=== PATIENT | male | born 1955 | race Caucasian/White ===

== ENCOUNTER 2024-05-27 10:44 | Inpatient (IN) | payer MEDICARE, OTHER ==
[~2024-05-27] VITALS: Ht 157.5 cm; Wt 50.8 kg
[2024-05-27] MEDS: VANCOMYCIN 1G PREMIX 200 ML IV ONE (12:15)
[2024-05-27 12:51] LABS: HEMOGLOBIN. 7.5 g/dL (14.0-18.0); MEAN CORPUSCULAR HEMOGLOBIN 27.6 pg (28.0-32.0); MEAN CORPUSCULAR HGB CONC 31.4 g/dL (31.0-37.0); MEAN PLATELET VOLUME 5.6 fl (7.4-10.4); PLATELET 835 x1000/uL (130-400); RED BLOOD CELL COUNT 2.73 mill/uL (4.7-6.1); RED CELL DISTRIBUTION WIDTH 15.9 % (11.6-14.6); WHITE BLOOD COUNT 10.1 x1000/uL (4.5-11.0)
[2024-05-27 12:55] LABS: DIFFERENTIAL COMMENT 1
[2024-05-27 13:01] LABS: CHLORIDE 100 mEq/L (98-107); POTASSIUM 4.9 mEq/L (3.5-5.1); SODIUM 130 mEq/L (136-145)
[2024-05-27 13:02] LABS: CALCIUM 9.3 mg/dL (8.7-10.4); CARBON DIOXIDE 26 mEq/L (21-32)
[2024-05-27 13:03] LABS: PROTHROMBIN TIME 10.7 sec (9.6-11.0)
[2024-05-27 13:07] LABS: CREATININE 0.7 mg/dL (0.6-1.3); GLUCOSE 127 mg/dL (70-105)
[2024-05-27 13:08] LABS: TROPONIN I HIGH SENSITIVITY 4 ng/L (3.0-53); UREA NITROGEN BLOOD 10 mg/dL (9-23)
[2024-05-27 13:09] LABS: ALANINE AMINOTRANSFERASE < 7 IU/L (10-49); ALBUMIN 4.3 g/dL (3.2-4.8); ASPARTATE AMINOTRANSFERASE 11 IU/L (<34); CREATINE KINASE 60 IU/L (46-171); LACTATE DEHYDROGENASE 163 IU/L (120-246)
[2024-05-27 13:10] LABS: BILIRUBIN TOTAL 0.2 mg/dL (0.1-1.0); PROTEIN TOTAL 7.1 g/dL (6.0-8.3)
[2024-05-27 13:22] LABS: BILIRUBIN DIRECT < 0.1 mg/dL (<=3.0)
[2024-05-27] MEDS: SODIUM CHLORIDE 0.9% 1,000 ML IV ONE (14:31)
[2024-05-27] MEDS: PIPERACILLIN/TAZO 3.375G/50ML 50 ML IV ONE (14:31)
[2024-05-27 15:35] LABS: ANISOCYTOSIS 1+; PLATELET ESTIMATE MARKEDLY INCREASED
[2024-05-27 16:44] LABS: CLARITY URINE CLEAR (CLEAR); COLOR URINE YELLOW (YELLOW); GLUCOSE URINE NEGATIVE (NEGATIVE); KETONES URINE NEGATIVE (NEGATIVE); LEUKOCYTE ESTERASE URINE NEGATIVE (NEGATIVE); NITRITE URINE NEGATIVE (NEGATIVE); OCCULT BLOOD URINE NEGATIVE (NEGATIVE); PH URINE 7.5 (4.5-8.0); PROTEIN URINE NEGATIVE (NEGATIVE); SPECIFIC GRAVITY URINE 1.007 (1.005-1.030); UROBILINOGEN URINE 0.2 E.U./dL (0.2-1.0)
[2024-05-27] MEDS ORDERED: ONDANSETRON HCL 4MG/2ML INJ IV PRN (18:00)
[2024-05-27] MEDS ORDERED: IPRATROPIUM/ALBUTEROL 0.5-3(2.5)MG/3ML NEB HHN PRN (18:00)
[2024-05-27] MEDS ORDERED: LORAZEPAM 0.5MG TABLET PO PRN (18:00)
[2024-05-27] MEDS ORDERED: MAGNESIUM/ALUMINUM HYDROXIDE/SIMETHICONE 30ML UDC PO PRN (18:00)
[2024-05-27] MEDS ORDERED: ACETAMINOPHEN 325MG TABLET PO PRN (18:00)
[2024-05-27] MEDS ORDERED: NALOXONE HCL 0.4MG/ML VIAL IV PRN (19:00)
[2024-05-27 19:50] LABS: CHLORIDE 102 mEq/L (98-107); POTASSIUM 4.1 mEq/L (3.5-5.1)
[2024-05-27 19:51] LABS: CARBON DIOXIDE 23 mEq/L (21-32); SODIUM 133 mEq/L (136-145)
[2024-05-27 19:52] LABS: CALCIUM 8.8 mg/dL (8.7-10.4)
[2024-05-27 19:56] LABS: CREATININE 0.7 mg/dL (0.6-1.3); GLUCOSE 112 mg/dL (70-105); IRON 24 ug/dL (65-175)
[2024-05-27 19:57] LABS: UREA NITROGEN BLOOD 9 mg/dL (9-23)
[2024-05-27 19:59] LABS: TOTAL IRON BINDING CAPACITY 450 ug/dl (250-425)
[2024-05-27] MEDS: FAMOTIDINE 20MG/2ML VIAL IV SCH (22:41)
[2024-05-27] MEDS: SODIUM CHLORIDE 0.9% 1,000 ML IV SCH (22:41)
[2024-05-28] MEDS: IOHEXOL-300 100 ML BOTTLE ONE (00:09)
[2024-05-28 08:46] LABS: HEMATOCRIT. 22.6 % (42.0-52.0); HEMOGLOBIN. 7.2 g/dL (14.0-18.0); MEAN CORPUSCULAR HEMOGLOBIN 27.9 pg (28.0-32.0); MEAN CORPUSCULAR HGB CONC 31.7 g/dL (31.0-37.0); MEAN PLATELET VOLUME 5.6 fl (7.4-10.4); PLATELET 820 x1000/uL (130-400); RED BLOOD CELL COUNT 2.57 mill/uL (4.7-6.1); RED CELL DISTRIBUTION WIDTH 15.6 % (11.6-14.6); WHITE BLOOD COUNT 8.6 x1000/uL (4.5-11.0)
[2024-05-28 08:51] LABS: CARBON DIOXIDE 24 mEq/L (21-32); CHLORIDE 104 mEq/L (98-107); POTASSIUM 4.1 mEq/L (3.5-5.1); SODIUM 133 mEq/L (136-145)
[2024-05-28 08:52] LABS: DIFFERENTIAL COMMENT 1
[2024-05-28 08:56] LABS: CREATININE 0.6 mg/dL (0.6-1.3); GLUCOSE 114 mg/dL (70-105)
[2024-05-28 08:57] LABS: TRIGLYCERIDE 73 mg/dL (0-150); UREA NITROGEN BLOOD 7 mg/dL (9-23)
[2024-05-28 08:58] LABS: LDL CHOLESTEROL 53 mg/dL (5-100)
[2024-05-28 08:59] LABS: CHOLESTEROL 84 mg/dL (<200); HDL CHOLESTEROL 26 mg/dL (>55); PHOSPHORUS 3.7 mg/dL (2.5-4.9)
[2024-05-28 09:01] LABS: T4 FREE 0.88 ng/dL (0.89-1.76); THYROID STIMULATING HORMONE 1.75 uIU/mL (0.55-4.78)
[2024-05-28 13:00] VITALS: BP 151/69; PULSE 93; RESP 16; TEMP 37.00296; O2SAT 98
[2024-05-28 15:14] LABS: ALANINE AMINOTRANSFERASE < 7 IU/L (10-49); ALBUMIN 3.9 g/dL (3.2-4.8); ASPARTATE AMINOTRANSFERASE 12 IU/L (<34); BILIRUBIN TOTAL 0.3 mg/dL (0.1-1.0); PROTEIN TOTAL 6.5 g/dL (6.0-8.3)
[2024-05-28 15:30] LABS: BILIRUBIN DIRECT < 0.1 mg/dL (<=3.0)
[2024-05-28 15:52] LABS: GIANT PLATELETS FEW; PLATELET ESTIMATE MARKEDLY INCREASED
[2024-05-28 17:00] VITALS: BP 151/69; PULSE 93; RESP 16; TEMP 37.0296
[2024-05-28] MEDS ORDERED: FERROUS SULFATE 325MG TABLET PO SCH (17:40)
[2024-05-28] MEDS ORDERED: HYDRALAZINE 20MG/ML VIAL IV PRN (18:00)
[2024-05-28 20:00] VITALS: BP 118/64; PULSE 92; RESP 20; TEMP 37.89192; O2SAT 98
[2024-05-28] MEDS ORDERED: FURO-152 MT (20:50)
[2024-05-28] MEDS ORDERED: METO-396 MT (20:50)
[2024-05-28] MEDS: FERROUS SULFATE 325MG TABLET PO SCH (21:51)
[2024-05-28] MEDS: GUAIFENESIN 200MG/10ML SUGAR FREE UDC PO PRN (21:51)
[2024-05-28] MEDS: ACETAMINOPHEN 325MG TABLET PO PRN (21:52)
[2024-05-29] VITALS: BP 105/51; PULSE 53; RESP 18; TEMP 37.28076; O2SAT 98
[2024-05-29 04:00] VITALS: BP 132/56; PULSE 57; RESP 19; TEMP 36.61404; O2SAT 97
[2024-05-29 06:30] LABS: CHLORIDE 98 mEq/L (98-107); POTASSIUM 3.7 mEq/L (3.5-5.1); SODIUM 130 mEq/L (136-145)
[2024-05-29 06:31] LABS: CALCIUM 9.1 mg/dL (8.7-10.4); CARBON DIOXIDE 24 mEq/L (21-32)
[2024-05-29 06:36] LABS: CREATININE 0.6 mg/dL (0.6-1.3); GLUCOSE 108 mg/dL (70-105); UREA NITROGEN BLOOD 8 mg/dL (9-23)
[2024-05-29 06:37] LABS: LACTATE DEHYDROGENASE 154 IU/L (120-246)
[2024-05-29 06:49] LABS: HEMATOCRIT. 22.8 % (42.0-52.0); HEMOGLOBIN. 7.4 g/dL (14.0-18.0); MEAN CORPUSCULAR HEMOGLOBIN 28.3 pg (28.0-32.0); MEAN CORPUSCULAR HGB CONC 32.6 g/dL (31.0-37.0); MEAN CORPUSCULAR VOLUME 86.6 fL (80.0-94.0); MEAN PLATELET VOLUME 5.7 fl (7.4-10.4); PLATELET 733 x1000/uL (130-400); RED BLOOD CELL COUNT 2.64 mill/uL (4.7-6.1); RED CELL DISTRIBUTION WIDTH 15.7 % (11.6-14.6); WHITE BLOOD COUNT 7.1 x1000/uL (4.5-11.0)
[2024-05-29 07:23] LABS: DIFFERENTIAL COMMENT 1
[2024-05-29 08:00] VITALS: BP 143/66; PULSE 103; RESP 18; TEMP 37.11408; O2SAT 18
[2024-05-29] MEDS ORDERED: METOPROLOL SUCCINATE 25MG ER TABLET PO SCH (09:00)
[2024-05-29] MEDS: FUROSEMIDE 20MG TABLET PO SCH (09:50)
[2024-05-29] MEDS: DOCUSATE SODIUM 100MG CAPSULE PO PRN (09:50)
[2024-05-29 12:00] VITALS: BP 146/57; PULSE 97; RESP 18; TEMP 36.33624; O2SAT 98
[2024-05-29 16:00] VITALS: BP 121/63; PULSE 108; RESP 18; TEMP 36.50292; O2SAT 98
[2024-05-29 16:23] LABS: ANISOCYTOSIS 1+; PLATELET ESTIMATE INCREASED
[2024-05-29 20:00] VITALS: BP 139/55; PULSE 91; RESP 20; TEMP 37.89192; O2SAT 96
[2024-05-30] VITALS: BP 127/63; PULSE 92; RESP 18; TEMP 36.61404; O2SAT 100
[2024-05-30 04:00] VITALS: BP 126/51; PULSE 104; RESP 21; TEMP 37.72524; O2SAT 98
[2024-05-30 06:13] LABS: CARCINOEMBRYONIC AG - SEND OUT 7.9 ng/mL (0.0-4.7); PROSTATE SPECIFIC AG TOTAL 0.6 ng/mL (0.0-4.0)
[2024-05-30 06:52] LABS: HEMATOCRIT. 21.7 % (42.0-52.0); HEMOGLOBIN. 7.1 g/dL (14.0-18.0); MEAN CORPUSCULAR HEMOGLOBIN 28.3 pg (28.0-32.0); MEAN CORPUSCULAR HGB CONC 32.8 g/dL (31.0-37.0); MEAN CORPUSCULAR VOLUME 86.4 fL (80.0-94.0); MEAN PLATELET VOLUME 5.8 fl (7.4-10.4); PLATELET 671 x1000/uL (130-400); RED BLOOD CELL COUNT 2.52 mill/uL (4.7-6.1); RED CELL DISTRIBUTION WIDTH 15.8 % (11.6-14.6); WHITE BLOOD COUNT 9.7 x1000/uL (4.5-11.0)
[2024-05-30 06:54] LABS: DIFFERENTIAL COMMENT 1
[2024-05-30 06:57] LABS: CARBON DIOXIDE 21 mEq/L (21-32); CHLORIDE 93 mEq/L (98-107); SODIUM 124 mEq/L (136-145)
[2024-05-30 06:58] LABS: CALCIUM 8.6 mg/dL (8.7-10.4)
[2024-05-30 07:01] LABS: CREATININE 0.7 mg/dL (0.6-1.3)
[2024-05-30 07:03] LABS: GLUCOSE 128 mg/dL (70-105)
[2024-05-30 07:04] LABS: UREA NITROGEN BLOOD 7 mg/dL (9-23)
[2024-05-30 07:05] LABS: PHOSPHORUS 3.8 mg/dL (2.5-4.9)
[2024-05-30 07:39] VITALS: BP 118/50; PULSE 80; RESP 20; TEMP 37.503; O2SAT 98
[2024-05-30] MEDS: METOPROLOL SUCCINATE 25MG ER TABLET PO SCH (08:10)
[2024-05-30 12:48] VITALS: BP 90/63; PULSE 70; RESP 20; TEMP 36.61404; O2SAT 98
[2024-05-30 13:33] LABS: OSMOLALITY URINE 259 mOsm/kg (500-850)
[2024-05-30 13:36] LABS: SODIUM URINE RANDOM 47 mEq/L
[2024-05-30 16:34] LABS: PLATELET ESTIMATE INCREASED
[2024-05-30 16:35] LABS: ANISOCYTOSIS 1+
[2024-05-30 16:42] LABS: HYPOCHROMASIA 1+
[2024-05-30] MEDS ORDERED: THROAT LOZENGES-BENZOCAINE/MENTH/CETYLPYRD CL LOZENGES MM PRN (17:30)
[2024-05-30 18:26] VITALS: BP 150/70; PULSE 70; RESP 18; TEMP 37.11408; O2SAT 98
[2024-05-30] MEDS: HYDROCODONE/ACETAMINOPHEN 5/325MG TABLET PO PRN (20:45)
[2024-05-31] VITALS: BP 140/56; PULSE 67; RESP 18; TEMP 36.44736; O2SAT 100
[2024-05-31 04:00] VITALS: BP 123/48; PULSE 89; RESP 19; TEMP 36.44736; O2SAT 97
[2024-05-31 08:00] VITALS: BP 131/80; PULSE 79; RESP 19; TEMP 37.00296; O2SAT 99
[2024-05-31 08:21] LABS: HEMATOCRIT. 22.7 % (42.0-52.0); HEMOGLOBIN. 7.4 g/dL (14.0-18.0); MEAN CORPUSCULAR HEMOGLOBIN 27.7 pg (28.0-32.0); MEAN CORPUSCULAR HGB CONC 32.4 g/dL (31.0-37.0); MEAN CORPUSCULAR VOLUME 85.7 fL (80.0-94.0); MEAN PLATELET VOLUME 5.8 fl (7.4-10.4); PLATELET 731 x1000/uL (130-400); RED BLOOD CELL COUNT 2.65 mill/uL (4.7-6.1); RED CELL DISTRIBUTION WIDTH 16.3 % (11.6-14.6); WHITE BLOOD COUNT 8.5 x1000/uL (4.5-11.0)
[2024-05-31 08:24] LABS: DIFFERENTIAL COMMENT 1
[2024-05-31 08:27] LABS: CHLORIDE 91 mEq/L (98-107); POTASSIUM 4.3 mEq/L (3.5-5.1); SODIUM 121 mEq/L (136-145)
[2024-05-31 08:28] LABS: CARBON DIOXIDE 25 mEq/L (21-32)
[2024-05-31 08:29] LABS: CALCIUM 9.1 mg/dL (8.7-10.4)
[2024-05-31 08:33] LABS: CREATININE 0.6 mg/dL (0.6-1.3); GLUCOSE 99 mg/dL (70-105)
[2024-05-31 08:34] LABS: UREA NITROGEN BLOOD 9 mg/dL (9-23)
[2024-05-31 08:36] LABS: PHOSPHORUS 4.2 mg/dL (2.5-4.9)
[2024-05-31] MEDS ORDERED: THROAT LOZENGES-BENZOCAINE/MENTH/CETYLPYRD CL LOZENGES MM PRN (09:00)
[2024-05-31 14:17] LABS: ANISOCYTOSIS 1+; PLATELET ESTIMATE INCREASED
[2024-05-31 16:00] VITALS: BP 130/76; PULSE 70; RESP 18; TEMP 36.50292; O2SAT 99
[2024-05-31 20:00] VITALS: BP 125/63; PULSE 97; RESP 18; TEMP 36.50292; O2SAT 98
[2024-06-01] VITALS: BP 122/45; PULSE 94; RESP 17; TEMP 36.22512; O2SAT 97
[2024-06-01 04:00] VITALS: BP 125/61; PULSE 91; RESP 16; TEMP 36.50292; O2SAT 100
[2024-06-01 06:18] LABS: HEMATOCRIT. 23.3 % (42.0-52.0); HEMOGLOBIN. 7.6 g/dL (14.0-18.0); MEAN CORPUSCULAR HEMOGLOBIN 27.5 pg (28.0-32.0); MEAN CORPUSCULAR HGB CONC 32.5 g/dL (31.0-37.0); MEAN CORPUSCULAR VOLUME 84.6 fL (80.0-94.0); MEAN PLATELET VOLUME 5.7 fl (7.4-10.4); PLATELET 726 x1000/uL (130-400); RED BLOOD CELL COUNT 2.76 mill/uL (4.7-6.1); RED CELL DISTRIBUTION WIDTH 16.3 % (11.6-14.6); WHITE BLOOD COUNT 8.2 x1000/uL (4.5-11.0)
[2024-06-01 06:24] LABS: CHLORIDE 90 mEq/L (98-107); POTASSIUM 4.3 mEq/L (3.5-5.1)
[2024-06-01 06:25] LABS: CALCIUM 8.7 mg/dL (8.7-10.4); CARBON DIOXIDE 25 mEq/L (21-32)
[2024-06-01 06:30] LABS: CREATININE 0.6 mg/dL (0.6-1.3); GLUCOSE 114 mg/dL (70-105); UREA NITROGEN BLOOD 10 mg/dL (9-23)
[2024-06-01 06:38] LABS: DIFFERENTIAL COMMENT 1
[2024-06-01 06:40] LABS: SODIUM 120 mEq/L (136-145)
[2024-06-01 06:53] LABS: SODIUM URINE RANDOM 53 mEq/L
[2024-06-01 08:00] VITALS: BP 123/57; PULSE 105; RESP 18; TEMP 38.11416; O2SAT 98
[2024-06-01 09:19] LABS: OSMOLALITY URINE 273 mOsm/kg (500-850)
[2024-06-01] MEDS ORDERED: PHENOL/SODIUM PHENOLATE 1.4% SRPAY 177ML MM PRN (11:15)
[2024-06-01 12:00] VITALS: BP 128/69; PULSE 87; RESP 18; TEMP 36.50292; O2SAT 98
[2024-06-01] MEDS: SODIUM CHLORIDE 3% 500 ML IV NR (12:32)
[2024-06-01 16:00] VITALS: BP 125/64; PULSE 83; RESP 18; TEMP 37.2252; O2SAT 99
[2024-06-01 18:15] LABS: ANISOCYTOSIS 1+; PLATELET ESTIMATE INCREASED
[2024-06-01 20:00] VITALS: BP 112/64; PULSE 100; RESP 20; TEMP 36.55848; O2SAT 96
[2024-06-02] VITALS: BP 115/60; PULSE 78; RESP 20; TEMP 37.11408; O2SAT 97
[2024-06-02 04:00] VITALS: BP 114/59; PULSE 95; RESP 18; TEMP 37.11408; O2SAT 99
[2024-06-02 12:41] LABS: HEMATOCRIT 22.6 % (42.0-52.0); HEMOGLOBIN 7.4 g/dL (14.0-18.0); MEAN CORPUSCULAR HEMOGLOBIN 27.8 pg (28.0-32.0); MEAN CORPUSCULAR HGB CONC 32.7 g/dL (31.0-37.0); MEAN CORPUSCULAR VOLUME 85.2 fL (80.0-94.0); PLATELET 731 x1000/uL (130-400); RED BLOOD CELL COUNT 2.66 mill/uL (4.7-6.1); WHITE BLOOD COUNT 8.6 x1000/uL (4.5-11.0)
[2024-06-02 13:10] LABS: CARBON DIOXIDE 23 mEq/L (21-32); CHLORIDE 94 mEq/L (98-107); POTASSIUM 4.3 mEq/L (3.5-5.1); SODIUM 124 mEq/L (136-145)
[2024-06-02 13:11] LABS: CALCIUM 8.8 mg/dL (8.7-10.4)
[2024-06-02 13:16] LABS: CREATININE 0.7 mg/dL (0.6-1.3); GLUCOSE 127 mg/dL (70-105); UREA NITROGEN BLOOD 9 mg/dL (9-23)
[2024-06-02 15:06] LABS: HEPATITIS A AB IGM NEGATIVE (Negative)
[2024-06-02 16:02] LABS: HEPATITIS B SURFACE ANTIGEN NEGATIVE (Negative)
[2024-06-02 16:12] LABS: HIV 1/2 AB P24AG Negative (Negative)
[2024-06-02 16:23] LABS: HEPATITIS B CORE AB IGM NEGATIVE (Negative); HEPATITIS C AB NON REACTIVE (Neg) (Negative)
[2024-06-02 20:00] VITALS: BP 134/56; PULSE 88; RESP 19; TEMP 37.61412; O2SAT 99
[2024-06-03] VITALS: BP 135/68; PULSE 79; RESP 19; TEMP 37.503; O2SAT 100
[2024-06-03 04:00] VITALS: BP 124/56; PULSE 88; RESP 19; TEMP 37.28076; O2SAT 100
[2024-06-03] MEDS ORDERED: BENZONATATE 100MG CAPSULE PO PRN (09:30)
[2024-06-03] MEDS ORDERED: IRON SUCROSE COMPLEX 100 MG/5 ML ML IV SCH ×2 (14:00→15:00)
[2024-06-03] MEDS: IRON SUCROSE COMPLEX 100 MG/5 ML ML IV SCH (16:18)
[2024-06-03 17:00] VITALS: BP 127/53; PULSE 79; RESP 20; TEMP 37.44744; O2SAT 100
[2024-06-03 20:00] VITALS: BP 144/65; PULSE 89; RESP 19; TEMP 36.50292; O2SAT 100
[2024-06-04] VITALS: BP 134/61; PULSE 79; RESP 18; TEMP 36.78072; O2SAT 99
[2024-06-04 04:00] VITALS: BP 112/56; PULSE 84; RESP 18; TEMP 36.89184; O2SAT 99
[2024-06-04 08:00] VITALS: BP 108/57; PULSE 78; RESP 18; TEMP 35.72508; O2SAT 100
[2024-06-04 12:00] VITALS: BP 129/60; PULSE 85; RESP 18; TEMP 36.61404; O2SAT 96
[2024-06-04 16:00] VITALS: BP 141/70; PULSE 83; RESP 20; TEMP 36.3918; O2SAT 99
[2024-06-04 20:00] VITALS: BP 138/66; PULSE 106; RESP 18; TEMP 36.78072; O2SAT 99
[2024-06-05] VITALS: BP 130/56; PULSE 73; RESP 18; TEMP 36.50292; O2SAT 99
[2024-06-05 04:00] VITALS: BP 131/55; PULSE 81; RESP 18; TEMP 36.50292; O2SAT 99
[2024-06-05 08:00] VITALS: BP 121/57; PULSE 80; RESP 17; TEMP 36.78072; O2SAT 98
[2024-06-05 12:00] VITALS: BP 115/46; PULSE 86; RESP 18; TEMP 36.61404; O2SAT 100
[2024-06-05 12:37] LABS: HEMATOCRIT 22.7 % (42.0-52.0); HEMOGLOBIN 7.1 g/dL (14.0-18.0); MEAN CORPUSCULAR HEMOGLOBIN 26.4 pg (28.0-32.0); MEAN CORPUSCULAR HGB CONC 31.4 g/dL (31.0-37.0); MEAN CORPUSCULAR VOLUME 83.9 fL (80.0-94.0); PLATELET 797 x1000/uL (130-400); RED CELL DISTRIBUTION WIDTH 16.4 % (11.6-14.6); WHITE BLOOD COUNT 9.1 x1000/uL (4.5-11.0)
[2024-06-05] MEDS ORDERED: FERR-63 PO (15:40)
[2024-06-05] MEDS ORDERED: METO-396 MT (15:40)
[2024-06-05 16:00] VITALS: BP 153/62; PULSE 87; RESP 18; TEMP 36.50292; O2SAT 96
[2024-06-05 16:35] VITALS: BP 153/62; PULSE 87; TEMP 97.7; O2SAT 96
== END 2024-06-05 18:33 | disposition home or self-care (01) | DRG 180 ==
LOC: ER 10:44 → 5WST 15:59 → EDBEDREQTM 16:14 → EDBEDREQ 16:14 → 5WST 05-28 07:16 → 8WST 05-28 12:45
PROVIDERS: ADMIT Preventive Medicine Clinical Informatics; ATTEND Preventive Medicine Clinical Informatics
DX: C34.31 Malignant neoplasm of lower lobe, right bronchus or lung (principal); E43 Unspecified severe protein-calorie malnutrition; J44.0 Chronic obstructive pulmonary disease with (acute) lower respiratory infection; E22.2 Syndrome of inappropriate secretion of antidiuretic hormone; J90 Pleural effusion, not elsewhere classified; I10 Essential (primary) hypertension; D50.9 Iron deficiency anemia, unspecified; F17.200 Nicotine dependence, unspecified, uncomplicated; D72.10 Eosinophilia, unspecified; D75.838 Other thrombocytosis; Z85.528 Personal history of other malignant neoplasm of kidney; R59.0 Localized enlarged lymph nodes; Z90.5 Acquired absence of kidney; Z68.20 Body mass index [BMI] 20.0-20.9, adult; Z78.9 Other specified health status
CPT/HCPCS: 36415; 71045; 71260; 80048; 80061; 80076; 81003; 82040; 82105; 82378; 82533; 82550; 82728; 83036; 83540; 83550; 83605; 83615; 83735; 83880; 83930; 83935; 84100; 84145; 84153; 84295; 84300; 84439; 84443; 84484; 85025; 85027; 85379; 86635; 86705; 86709; 86850; 86900; 87116; 87340; 87426; 87556; 92610; 93005; 93970; 99291; J2543; J3370; J3490; J7030; Q9967

== ENCOUNTER 2024-07-11 21:27 | Inpatient (IN) | payer OTHER, MEDICAID, MEDICARE ==
[~2024-07-11] VITALS: Ht 154.9 cm; Wt 51.7 kg
[~2024-07-11 21:27] MED LIST: ASCO-339 MT; ATOR40TA70 MT; AZEL137S7 NS; FERR-63 PO; FURO20TA4 MT; LEVO-65 MT; METO-396 MT
[2024-07-11 23:14] LABS: MEAN CORPUSCULAR HEMOGLOBIN 24.1 pg (28.0-32.0); MEAN CORPUSCULAR HGB CONC 30.6 g/dL (31.0-37.0); MEAN CORPUSCULAR VOLUME 78.8 fL (80.0-94.0); MEAN PLATELET VOLUME 5.5 fl (7.4-10.4); PLATELET 989 x1000/uL (130-400); RED BLOOD CELL COUNT 2.45 mill/uL (4.7-6.1); RED CELL DISTRIBUTION WIDTH 19.4 % (11.6-14.6); WHITE BLOOD COUNT 10.9 x1000/uL (4.5-11.0)
[2024-07-11 23:17] LABS: CHLORIDE 96 mEq/L (98-107); POTASSIUM 4.5 mEq/L (3.5-5.1); SODIUM 126 mEq/L (136-145)
[2024-07-11 23:18] LABS: CARBON DIOXIDE 24 mEq/L (21-32)
[2024-07-11 23:23] LABS: CREATININE 0.8 mg/dL (0.6-1.3); GLUCOSE 113 mg/dL (70-105)
[2024-07-11 23:24] LABS: UREA NITROGEN BLOOD 11 mg/dL (9-23)
[2024-07-11 23:26] LABS: TROPONIN I HIGH SENSITIVITY 8 ng/L (3.0-53)
[2024-07-11] MEDS ORDERED: NITROGLYCERIN 0.4MG TABLET SL SL PRN (23:30)
[2024-07-11 23:40] LABS: DIFFERENTIAL COMMENT 1
[2024-07-11 23:44] LABS: HEMOGLOBIN. 5.9 g/dL (14.0-18.0)
[2024-07-11 23:45] LABS: HEMATOCRIT. 19.3 % (42.0-52.0)
[2024-07-12] VITALS (7 sets, daily range): BP systolic 117–131; BP diastolic 52–66; PULSE 78–90; RESP 18–20; TEMP 36.44736–36.72516; O2SAT 95–100
[2024-07-12 00:05] LABS: D-DIMER 1.46 mg/L FEU (<0.50); PARTIAL THROMBOPLASTIN TIME 31.6 sec (23.4-31.0); PROTHROMBIN TIME 10.9 sec (9.6-11.0)
[2024-07-12] MEDS ORDERED: AZITHROMYCIN 500MG/250ML 250 ML IV ONE (00:15)
[2024-07-12] MEDS: CEFTRIAXONE 1GM/50ML 50 ML IV ONE (00:39)
[2024-07-12] MEDS: ASPIRIN 81MG TABLET PO ONE (00:39)
[2024-07-12] MEDS: SODIUM CHLORIDE 0.9% 1000ML BAG (SEPSIS BOLUS) IV ONE (00:40)
[2024-07-12 00:47] LABS: CLARITY URINE CLEAR (CLEAR); COLOR URINE YELLOW (YELLOW); GLUCOSE URINE NEGATIVE (NEGATIVE); KETONES URINE NEGATIVE (NEGATIVE); LEUKOCYTE ESTERASE URINE NEGATIVE (NEGATIVE); NITRITE URINE NEGATIVE (NEGATIVE); OCCULT BLOOD URINE NEGATIVE (NEGATIVE); PROTEIN URINE NEGATIVE (NEGATIVE); SPECIFIC GRAVITY URINE 1.004 (1.005-1.030); UROBILINOGEN URINE 0.2 E.U./dL (0.2-1.0)
[2024-07-12] MEDS ORDERED: IOHEXOL-350 100 ML BOTTLE ONE (02:18)
[2024-07-12 04:39] LABS: NUCLEATED RED BLOOD CELLS 1 /100 WBC
[2024-07-12 04:42] LABS: PLATELET ESTIMATE INCREASED
[2024-07-12 04:44] LABS: HYPOCHROMASIA 1+
[2024-07-12 04:46] LABS: MICROCYTOSIS 1+
[2024-07-12 07:09] LABS: HEMATOCRIT. 22.9 % (42.0-52.0); HEMOGLOBIN. 7.4 g/dL (14.0-18.0); MEAN CORPUSCULAR HEMOGLOBIN 25.6 pg (28.0-32.0); MEAN CORPUSCULAR HGB CONC 32.1 g/dL (31.0-37.0); MEAN CORPUSCULAR VOLUME 79.6 fL (80.0-94.0); MEAN PLATELET VOLUME 5.6 fl (7.4-10.4); PLATELET 917 x1000/uL (130-400); RED BLOOD CELL COUNT 2.88 mill/uL (4.7-6.1); RED CELL DISTRIBUTION WIDTH 18.5 % (11.6-14.6); WHITE BLOOD COUNT 11.1 x1000/uL (4.5-11.0)
[2024-07-12 07:20] LABS: DIFFERENTIAL COMMENT 1
[2024-07-12] MEDS ORDERED: CETI10TA6 PO (09:44)
[2024-07-12] MEDS ORDERED: AMLO10TA80 PO (09:44)
[2024-07-12] MEDS ORDERED: MAGN400T7 (09:44)
[2024-07-12] MEDS ORDERED: HYDR50TA PO (09:44)
[2024-07-12] MEDS ORDERED: OMEP20CA14 PO (09:44)
[2024-07-12] MEDS ORDERED: IPRATROPIUM/ALBUTEROL 0.5-3(2.5)MG/3ML NEB HHN PRN (13:00)
[2024-07-12] MEDS ORDERED: DOCUSATE SODIUM 100MG CAPSULE PO PRN (13:00)
[2024-07-12] MEDS ORDERED: CLONIDINE 0.1MG TABLET PO PRN (13:00)
[2024-07-12] MEDS: AZITHROMYCIN 500 MG TABLET PO SCH (16:38)
[2024-07-12 17:26] LABS: CHLORIDE 100 mEq/L (98-107); POTASSIUM 4.4 mEq/L (3.5-5.1); SODIUM 129 mEq/L (136-145)
[2024-07-12 17:27] LABS: CALCIUM 9.2 mg/dL (8.7-10.4); CARBON DIOXIDE 24 mEq/L (21-32)
[2024-07-12 17:31] LABS: IRON 21 ug/dL (65-175)
[2024-07-12 17:32] LABS: CREATININE 0.7 mg/dL (0.6-1.3); GLUCOSE 92 mg/dL (70-105); UREA NITROGEN BLOOD 10 mg/dL (9-23)
[2024-07-12 17:34] LABS: PHOSPHORUS 4.1 mg/dL (2.5-4.9); TOTAL IRON BINDING CAPACITY 417 ug/dl (250-425)
[2024-07-12 17:37] LABS: THYROID STIMULATING HORMONE 1.86 uIU/mL (0.55-4.78)
[2024-07-12 19:39] LABS: MICROCYTOSIS 1+; PLATELET ESTIMATE INCREASED
[2024-07-12] MEDS ORDERED: CEFTRIAXONE 1GM/50ML 50 ML IV SCH (22:00)
[2024-07-13] VITALS: BP 129/59; PULSE 79; RESP 18; TEMP 36.61404; O2SAT 96
[2024-07-13 04:00] VITALS: BP 134/61; PULSE 88; RESP 18; TEMP 36.72516; O2SAT 95
[2024-07-13] MEDS: CEFTRIAXONE 1GM/50ML 50 ML IV SCH (05:13)
[2024-07-13 07:18] LABS: CARBON DIOXIDE 22 mEq/L (21-32); CHLORIDE 95 mEq/L (98-107); POTASSIUM 4.5 mEq/L (3.5-5.1); SODIUM 125 mEq/L (136-145)
[2024-07-13 07:19] LABS: CALCIUM 9.2 mg/dL (8.7-10.4)
[2024-07-13 07:23] LABS: CREATININE 0.7 mg/dL (0.6-1.3)
[2024-07-13 07:24] LABS: GLUCOSE 95 mg/dL (70-105); TRIGLYCERIDE 55 mg/dL (0-150); UREA NITROGEN BLOOD 11 mg/dL (9-23)
[2024-07-13 07:25] LABS: LDL CHOLESTEROL 46 mg/dL (5-100)
[2024-07-13 07:26] LABS: CHOLESTEROL 80 mg/dL (<200); HDL CHOLESTEROL 31 mg/dL (>55)
[2024-07-13 07:47] LABS: HEMATOCRIT. 23.9 % (42.0-52.0); HEMOGLOBIN. 7.6 g/dL (14.0-18.0); MEAN CORPUSCULAR HEMOGLOBIN 25.2 pg (28.0-32.0); MEAN CORPUSCULAR HGB CONC 31.8 g/dL (31.0-37.0); MEAN CORPUSCULAR VOLUME 79.1 fL (80.0-94.0); MEAN PLATELET VOLUME 5.6 fl (7.4-10.4); PLATELET 985 x1000/uL (130-400); RED BLOOD CELL COUNT 3.02 mill/uL (4.7-6.1); RED CELL DISTRIBUTION WIDTH 18.8 % (11.6-14.6)
[2024-07-13 08:00] VITALS: BP 112/52; PULSE 74; RESP 20; TEMP 36.55848; O2SAT 98
[2024-07-13 08:00] LABS: DIFFERENTIAL COMMENT 1
[2024-07-13 12:00] VITALS: BP 120/53; PULSE 80; RESP 20; TEMP 36.44736; O2SAT 99
[2024-07-13] MEDS ORDERED: SODIUM CHLORIDE 3% 500ML IV SOLN IV ONE (13:45)
[2024-07-13] MEDS: IRON SUCROSE COMPLEX 100 MG/5 ML ML IV SCH (14:19)
[2024-07-13] MEDS: SODIUM CHLORIDE 3% 200 ML IV NR (15:30)
[2024-07-13 16:00] VITALS: BP 122/55; PULSE 82; RESP 16; TEMP 37.00296; O2SAT 97
[2024-07-13 16:48] LABS: PLATELET ESTIMATE INCREASED
[2024-07-13 16:49] LABS: ANISOCYTOSIS 2+; MICROCYTOSIS 1+
[2024-07-13 20:00] VITALS: BP 131/60; PULSE 88; RESP 18; TEMP 36.61404; O2SAT 99
[2024-07-14] VITALS: BP 128/62; PULSE 82; RESP 18; TEMP 36.33624; O2SAT 99
[2024-07-14 04:00] VITALS: BP 122/65; PULSE 80; RESP 18; TEMP 36.55848; O2SAT 98
[2024-07-14 06:55] LABS: BASOPHILS % 0.8 % (0.0-2.0); DIFFERENTIAL COMMENT 0; EOSINOPHILS % 12.5 % (0.0-5.0); HEMATOCRIT. 24.5 % (42.0-52.0); HEMOGLOBIN. 7.8 g/dL (14.0-18.0); LYMPHOCYTES % 10.8 % (20.0-50.0); MEAN CORPUSCULAR HEMOGLOBIN 25.1 pg (28.0-32.0); MEAN CORPUSCULAR HGB CONC 31.7 g/dL (31.0-37.0); MEAN CORPUSCULAR VOLUME 79.2 fL (80.0-94.0); MEAN PLATELET VOLUME 5.6 fl (7.4-10.4); MONOCYTES % 12.8 % (2.0-8.0); NEUTROPHILS % 63.1 % (40.0-76.0); PLATELET 926 x1000/uL (130-400); RED BLOOD CELL COUNT 3.09 mill/uL (4.7-6.1); RED CELL DISTRIBUTION WIDTH 19.2 % (11.6-14.6)
[2024-07-14 07:03] LABS: CALCIUM 9.4 mg/dL (8.7-10.4); CARBON DIOXIDE 23 mEq/L (21-32); CHLORIDE 97 mEq/L (98-107); POTASSIUM 4.6 mEq/L (3.5-5.1); SODIUM 127 mEq/L (136-145)
[2024-07-14 07:09] LABS: CREATININE 0.7 mg/dL (0.6-1.3); GLUCOSE 99 mg/dL (70-105); UREA NITROGEN BLOOD 7 mg/dL (9-23)
[2024-07-14 08:00] VITALS: BP 115/61; PULSE 89; RESP 18; TEMP 36.22512; O2SAT 99
[2024-07-14 12:00] VITALS: BP 122/57; PULSE 98; RESP 18; TEMP 36.6696; O2SAT 99
[2024-07-14 16:00] VITALS: BP 118/74; PULSE 92; RESP 19; TEMP 36.33624; O2SAT 98
[2024-07-14 20:00] VITALS: BP 118/57; PULSE 87; RESP 18; TEMP 37.28076; O2SAT 98
[2024-07-14] MEDS: ZOLPIDEM TARTRATE 5MG TABLET PO PRN (23:06)
[2024-07-15] VITALS: BP 117/57; PULSE 93; RESP 18; TEMP 37.44744; O2SAT 97
[2024-07-15 04:00] VITALS: BP 109/51; PULSE 86; RESP 18; TEMP 37.16964; O2SAT 98
[2024-07-15 07:09] LABS: CARBON DIOXIDE 22 mEq/L (21-32); CHLORIDE 94 mEq/L (98-107); POTASSIUM 4.1 mEq/L (3.5-5.1); SODIUM 124 mEq/L (136-145)
[2024-07-15 07:10] LABS: CALCIUM 9.2 mg/dL (8.7-10.4)
[2024-07-15 07:14] LABS: CREATININE 0.7 mg/dL (0.6-1.3)
[2024-07-15 07:15] LABS: GLUCOSE 89 mg/dL (70-105); UREA NITROGEN BLOOD 6 mg/dL (9-23)
[2024-07-15 07:46] LABS: BASOPHILS % 0.4 % (0.0-2.0); DIFFERENTIAL COMMENT 0; HEMATOCRIT. 23.2 % (42.0-52.0); HEMOGLOBIN. 7.4 g/dL (14.0-18.0); LYMPHOCYTES % 9.5 % (20.0-50.0); MEAN CORPUSCULAR HGB CONC 31.7 g/dL (31.0-37.0); MEAN CORPUSCULAR VOLUME 78.8 fL (80.0-94.0); MEAN PLATELET VOLUME 5.6 fl (7.4-10.4); MONOCYTES % 14.6 % (2.0-8.0); NEUTROPHILS % 68.5 % (40.0-76.0); PLATELET 849 x1000/uL (130-400); RED BLOOD CELL COUNT 2.95 mill/uL (4.7-6.1); RED CELL DISTRIBUTION WIDTH 19.8 % (11.6-14.6); WHITE BLOOD COUNT 13.6 x1000/uL (4.5-11.0)
[2024-07-15 08:00] VITALS: BP 118/54; PULSE 86; RESP 18; TEMP 36.89184; O2SAT 98
[2024-07-15 12:00] VITALS: BP 121/54; PULSE 71; RESP 18; TEMP 36.6696; O2SAT 100
[2024-07-15 16:00] VITALS: BP 125/56; PULSE 87; RESP 20; TEMP 36.61404; O2SAT 100
[2024-07-15 20:00] VITALS: BP 110/55; PULSE 85; RESP 18; TEMP 36.78072; O2SAT 99
[2024-07-15] MEDS: DEMECLOCYCLINE HCL 300MG TABLET PO SCH (21:29)
[2024-07-16 04:00] VITALS: BP 113/48; PULSE 90; RESP 18; TEMP 36.55848; O2SAT 99
[2024-07-16 06:33] LABS: CARBON DIOXIDE 21 mEq/L (21-32); CHLORIDE 93 mEq/L (98-107); POTASSIUM 4.2 mEq/L (3.5-5.1); SODIUM 121 mEq/L (136-145)
[2024-07-16 06:39] LABS: CREATININE 0.6 mg/dL (0.6-1.3); GLUCOSE 98 mg/dL (70-105); UREA NITROGEN BLOOD 8 mg/dL (9-23)
[2024-07-16 07:10] LABS: HEMOGLOBIN. 7.2 g/dL (14.0-18.0); MEAN CORPUSCULAR HEMOGLOBIN 24.9 pg (28.0-32.0); MEAN CORPUSCULAR HGB CONC 31.3 g/dL (31.0-37.0); MEAN CORPUSCULAR VOLUME 79.7 fL (80.0-94.0); MEAN PLATELET VOLUME 5.6 fl (7.4-10.4); PLATELET 787 x1000/uL (130-400); RED BLOOD CELL COUNT 2.89 mill/uL (4.7-6.1); RED CELL DISTRIBUTION WIDTH 19.7 % (11.6-14.6)
[2024-07-16 07:29] LABS: DIFFERENTIAL COMMENT 1
[2024-07-16 08:00] VITALS: BP 115/56; PULSE 93; RESP 20; TEMP 36.33624; O2SAT 99
[2024-07-16] MEDS: SODIUM CHLORIDE 0.9% 1,000 ML IV SCH (10:00)
[2024-07-16 12:00] VITALS: BP 119/52; PULSE 87; RESP 20; TEMP 36.72516; O2SAT 99
[2024-07-16 16:00] VITALS: BP 117/58; PULSE 88; RESP 20; TEMP 36.78072; O2SAT 99
[2024-07-16] MEDS: ACETAMINOPHEN 325MG TABLET PO PRN (17:04)
[2024-07-16 20:02] VITALS: BP 122/53; PULSE 88; RESP 18; TEMP 36.3918; O2SAT 100
[2024-07-16 22:17] LABS: HYPOCHROMASIA 1+; MICROCYTOSIS 1+; PLATELET ESTIMATE INCREASED
[2024-07-17] VITALS: BP 108/52; PULSE 87; RESP 18; TEMP 36.6696; O2SAT 100
[2024-07-17 03:49] VITALS: BP 112/53; PULSE 88; RESP 18; TEMP 36.3918; O2SAT 100
[2024-07-17 08:00] VITALS: BP 113/52; PULSE 96; RESP 18; TEMP 37.05852; O2SAT 100
[2024-07-17 12:00] VITALS: BP 105/51; PULSE 84; RESP 18; TEMP 36.05844; O2SAT 100
[2024-07-17 13:46] LABS: BASOPHILS % 0.6 % (0.0-2.0); EOSINOPHILS % 5.5 % (0.0-5.0); HEMATOCRIT. 24.1 % (42.0-52.0); HEMOGLOBIN. 7.3 g/dL (14.0-18.0); MEAN CORPUSCULAR HEMOGLOBIN 25.1 pg (28.0-32.0); MEAN CORPUSCULAR HGB CONC 30.2 g/dL (31.0-37.0); MEAN CORPUSCULAR VOLUME 82.8 fL (80.0-94.0); MEAN PLATELET VOLUME 5.5 fl (7.4-10.4); MONOCYTES % 13.6 % (2.0-8.0); NEUTROPHILS % 72.3 % (40.0-76.0); PLATELET 799 x1000/uL (130-400); RED CELL DISTRIBUTION WIDTH 20.8 % (11.6-14.6); WHITE BLOOD COUNT 11.9 x1000/uL (4.5-11.0)
[2024-07-17 13:52] LABS: CHLORIDE 96 mEq/L (98-107); POTASSIUM 4.4 mEq/L (3.5-5.1); SODIUM 124 mEq/L (136-145)
[2024-07-17 13:53] LABS: CARBON DIOXIDE 22 mEq/L (21-32)
[2024-07-17 13:54] LABS: CALCIUM 8.7 mg/dL (8.7-10.4)
[2024-07-17 13:59] LABS: CREATININE 0.7 mg/dL (0.6-1.3); GLUCOSE 115 mg/dL (70-105); UREA NITROGEN BLOOD 9 mg/dL (9-23)
[2024-07-17 14:00] LABS: TROPONIN I HIGH SENSITIVITY 5 ng/L (3.0-53)
[2024-07-17 16:00] VITALS: BP 130/56; PULSE 86; RESP 18; TEMP 36.16956; O2SAT 99
[2024-07-17] MEDS: SODIUM CHLORIDE 3% IV NR (16:41)
[2024-07-17 20:00] VITALS: BP 137/61; PULSE 91; RESP 18; TEMP 37.28076; O2SAT 99
[2024-07-17] MEDS: NITROGLYCERIN 0.4MG TABLET SL SL PRN (21:26)
[2024-07-18] VITALS: BP 130/52; PULSE 103; RESP 19; TEMP 36.61404; O2SAT 100
[2024-07-18 02:15] VITALS: BP 130/52; PULSE 103; RESP 19; TEMP 36.61404; O2SAT 100
[2024-07-18 04:00] VITALS: BP 129/58; PULSE 99; RESP 20; TEMP 37.16964; O2SAT 99
[2024-07-18 07:00] LABS: CARBON DIOXIDE 21 mEq/L (21-32); CHLORIDE 99 mEq/L (98-107); POTASSIUM 4.3 mEq/L (3.5-5.1); SODIUM 128 mEq/L (136-145)
[2024-07-18 07:01] LABS: CALCIUM 8.9 mg/dL (8.7-10.4)
[2024-07-18 07:05] LABS: CREATININE 0.7 mg/dL (0.6-1.3)
[2024-07-18 07:06] LABS: BASOPHILS % 0.9 % (0.0-2.0); EOSINOPHILS % 7.8 % (0.0-5.0); GLUCOSE 102 mg/dL (70-105); HEMATOCRIT. 22.1 % (42.0-52.0); HEMOGLOBIN. 7.1 g/dL (14.0-18.0); MEAN CORPUSCULAR HEMOGLOBIN 26.3 pg (28.0-32.0); MEAN CORPUSCULAR HGB CONC 32.2 g/dL (31.0-37.0); MEAN CORPUSCULAR VOLUME 81.9 fL (80.0-94.0); MEAN PLATELET VOLUME 5.7 fl (7.4-10.4); MONOCYTES % 12.7 % (2.0-8.0); NEUTROPHILS % 67.6 % (40.0-76.0); PLATELET 732 x1000/uL (130-400); UREA NITROGEN BLOOD 8 mg/dL (9-23)
[2024-07-18 08:00] VITALS: BP 122/51; PULSE 87; RESP 19; TEMP 36.114; O2SAT 99
[2024-07-18 12:00] VITALS: BP 142/55; PULSE 90; RESP 18; TEMP 36.05844; O2SAT 99
[2024-07-18 20:00] VITALS: BP 137/57; PULSE 84; RESP 18; TEMP 36.89184; O2SAT 98
[2024-07-19] VITALS (10 sets, daily range): BP systolic 107–137; BP diastolic 50–71; PULSE 61–100; RESP 14–19; TEMP 36.28068–37.05852; O2SAT 98–100
[2024-07-19] MEDS ORDERED: METHOCARBAMOL 500MG TABLET PO PRN (07:45)
[2024-07-19 08:03] LABS: BASOPHILS % 0.9 % (0.0-2.0); EOSINOPHILS % 10.4 % (0.0-5.0); HEMATOCRIT. 22.8 % (42.0-52.0); HEMOGLOBIN. 7.3 g/dL (14.0-18.0); MEAN CORPUSCULAR HEMOGLOBIN 25.7 pg (28.0-32.0); MEAN CORPUSCULAR HGB CONC 31.9 g/dL (31.0-37.0); MEAN CORPUSCULAR VOLUME 80.6 fL (80.0-94.0); MEAN PLATELET VOLUME 5.5 fl (7.4-10.4); MONOCYTES % 14.1 % (2.0-8.0); NEUTROPHILS % 63.6 % (40.0-76.0); PLATELET 703 x1000/uL (130-400); RED BLOOD CELL COUNT 2.83 mill/uL (4.7-6.1); RED CELL DISTRIBUTION WIDTH 21.6 % (11.6-14.6); WHITE BLOOD COUNT 8.4 x1000/uL (4.5-11.0)
[2024-07-19 08:04] LABS: CHLORIDE 96 mEq/L (98-107); SODIUM 125 mEq/L (136-145)
[2024-07-19 08:05] LABS: CARBON DIOXIDE 22 mEq/L (21-32)
[2024-07-19 08:06] LABS: CALCIUM 9.1 mg/dL (8.7-10.4)
[2024-07-19 08:10] LABS: CREATININE 0.7 mg/dL (0.6-1.3)
[2024-07-19 08:11] LABS: GLUCOSE 99 mg/dL (70-105); UREA NITROGEN BLOOD 6 mg/dL (9-23)
[2024-07-19] MEDS: HYDROCODONE/ACETAMINOPHEN 5/325MG TABLET PO PRN (09:03)
[2024-07-19] MEDS: DILTIAZEM HCL 5MG/ML 5ML VIAL IV NR (09:23)
[2024-07-19] MEDS: SODIUM CHLORIDE 0.9% 1,000 ML IV SCH (10:29)
[2024-07-19] MEDS: DIGOXIN 500MCG/2ML AMP IV NR (10:31)
[2024-07-19] MEDS: DIGOXIN 250MCG TABLET PO SCH (18:16)
[2024-07-19] MEDS: METOPROLOL TARTRATE 25MG TABLET PO SCH (21:00)
[2024-07-19] MEDS: ACETAMINOPHEN 325MG TABLET PO PRN (23:46)
[2024-07-20] VITALS (14 sets, daily range): BP systolic 106–144; BP diastolic 43–74; PULSE 71–102; RESP 11–22; TEMP 36.55848–37.7808; O2SAT 98–100
[2024-07-20 11:30] LABS: HEMATOCRIT. 23.3 % (42.0-52.0); HEMOGLOBIN. 7.4 g/dL (14.0-18.0); MEAN CORPUSCULAR HEMOGLOBIN 26.2 pg (28.0-32.0); MEAN CORPUSCULAR HGB CONC 31.6 g/dL (31.0-37.0); MEAN CORPUSCULAR VOLUME 82.9 fL (80.0-94.0); MEAN PLATELET VOLUME 5.7 fl (7.4-10.4); PLATELET 685 x1000/uL (130-400); RED BLOOD CELL COUNT 2.82 mill/uL (4.7-6.1); RED CELL DISTRIBUTION WIDTH 21.1 % (11.6-14.6); WHITE BLOOD COUNT 8.7 x1000/uL (4.5-11.0)
[2024-07-20 11:31] LABS: CHLORIDE 99 mEq/L (98-107); SODIUM 128 mEq/L (136-145)
[2024-07-20 11:32] LABS: CALCIUM 8.8 mg/dL (8.7-10.4); CARBON DIOXIDE 23 mEq/L (21-32)
[2024-07-20 11:37] LABS: CREATININE 0.6 mg/dL (0.6-1.3); GLUCOSE 111 mg/dL (70-105); UREA NITROGEN BLOOD 6 mg/dL (9-23)
[2024-07-20 11:43] LABS: DIFFERENTIAL COMMENT 1
[2024-07-20] MEDS ORDERED: NALOXONE HCL 0.4MG/ML VIAL IV PRN (12:00)
[2024-07-20] MEDS: DIGOXIN 125MCG TABLET PO SCH (17:50)
[2024-07-20 18:18] LABS: PLATELET ESTIMATE INCREASED
[2024-07-20] MEDS: ONDANSETRON HCL 4MG/2ML INJ IV PRN (21:09)
[2024-07-20] MEDS: ZOLPIDEM TARTRATE 5MG TABLET PO PRN (22:44)
[2024-07-21] VITALS (16 sets, daily range): BP systolic 117–149; BP diastolic 47–81; PULSE 72–107; RESP 13–22; TEMP 36.72516–37.503; O2SAT 96–100
[2024-07-21 06:46] LABS: HEMATOCRIT. 24.4 % (42.0-52.0); HEMOGLOBIN. 7.6 g/dL (14.0-18.0); MEAN CORPUSCULAR HEMOGLOBIN 25.7 pg (28.0-32.0); MEAN CORPUSCULAR HGB CONC 31.3 g/dL (31.0-37.0); MEAN CORPUSCULAR VOLUME 82.1 fL (80.0-94.0); MEAN PLATELET VOLUME 5.7 fl (7.4-10.4); PLATELET 658 x1000/uL (130-400); RED BLOOD CELL COUNT 2.97 mill/uL (4.7-6.1); RED CELL DISTRIBUTION WIDTH 20.8 % (11.6-14.6)
[2024-07-21 06:47] LABS: CHLORIDE 99 mEq/L (98-107); POTASSIUM 4.3 mEq/L (3.5-5.1); SODIUM 128 mEq/L (136-145)
[2024-07-21 06:48] LABS: CALCIUM 9.1 mg/dL (8.7-10.4); CARBON DIOXIDE 24 mEq/L (21-32)
[2024-07-21 06:53] LABS: CREATININE 0.6 mg/dL (0.6-1.3); GLUCOSE 96 mg/dL (70-105); UREA NITROGEN BLOOD 6 mg/dL (9-23)
[2024-07-21 07:10] LABS: DIFFERENTIAL COMMENT 1
[2024-07-21 16:28] LABS: PLATELET ESTIMATE NORMAL
[2024-07-22] VITALS (11 sets, daily range): BP systolic 104–146; BP diastolic 44–78; PULSE 74–100; RESP 12–21; TEMP 36.6696–37.05852; O2SAT 96–100
[2024-07-22 13:46] LABS: EOSINOPHILS % 7.6 % (0.0-5.0); HEMATOCRIT. 24.4 % (42.0-52.0); HEMOGLOBIN. 7.5 g/dL (14.0-18.0); LYMPHOCYTES % 7.8 % (20.0-50.0); MEAN CORPUSCULAR HEMOGLOBIN 25.4 pg (28.0-32.0); MEAN CORPUSCULAR HGB CONC 30.9 g/dL (31.0-37.0); MEAN CORPUSCULAR VOLUME 81.9 fL (80.0-94.0); MEAN PLATELET VOLUME 5.8 fl (7.4-10.4); MONOCYTES % 14.6 % (2.0-8.0); PLATELET 692 x1000/uL (130-400); RED BLOOD CELL COUNT 2.98 mill/uL (4.7-6.1); RED CELL DISTRIBUTION WIDTH 20.5 % (11.6-14.6); WHITE BLOOD COUNT 8.9 x1000/uL (4.5-11.0)
[2024-07-22 13:56] LABS: CARBON DIOXIDE 24 mEq/L (21-32); CHLORIDE 97 mEq/L (98-107); POTASSIUM 4.3 mEq/L (3.5-5.1); SODIUM 127 mEq/L (136-145)
[2024-07-22 13:57] LABS: CALCIUM 8.9 mg/dL (8.7-10.4)
[2024-07-22 14:01] LABS: CREATININE 0.6 mg/dL (0.6-1.3)
[2024-07-22 14:02] LABS: GLUCOSE 92 mg/dL (70-105); UREA NITROGEN BLOOD 6 mg/dL (9-23)
[2024-07-22 17:11] LABS: HEMATOCRIT 22.7 % (42.0-52.0); HEMOGLOBIN 7.4 g/dL (14.0-18.0)
[2024-07-23] VITALS (11 sets, daily range): BP systolic 105–148; BP diastolic 39–68; PULSE 76–99; RESP 12–19; TEMP 36.6696–36.89184; O2SAT 100
[2024-07-23 11:28] LABS: CHLORIDE 98 mEq/L (98-107); POTASSIUM 3.8 mEq/L (3.5-5.1); SODIUM 128 mEq/L (136-145)
[2024-07-23 11:29] LABS: CALCIUM 8.6 mg/dL (8.7-10.4); CARBON DIOXIDE 24 mEq/L (21-32)
[2024-07-23 11:34] LABS: CREATININE 0.6 mg/dL (0.6-1.3)
[2024-07-23 11:35] LABS: GLUCOSE 133 mg/dL (70-105); UREA NITROGEN BLOOD 7 mg/dL (9-23)
[2024-07-24] VITALS (12 sets, daily range): BP systolic 117–146; BP diastolic 45–79; PULSE 71–95; RESP 14–20; TEMP 37.2252–37.44744; O2SAT 92–100
[2024-07-24 06:47] LABS: CALCIUM 9.1 mg/dL (8.7-10.4); CHLORIDE 95 mEq/L (98-107); POTASSIUM 3.8 mEq/L (3.5-5.1); SODIUM 125 mEq/L (136-145)
[2024-07-24 06:48] LABS: CARBON DIOXIDE 23 mEq/L (21-32)
[2024-07-24 06:53] LABS: CREATININE 0.6 mg/dL (0.6-1.3); GLUCOSE 97 mg/dL (70-105); UREA NITROGEN BLOOD 8 mg/dL (9-23)
[2024-07-24] MEDS: DEMECLOCYCLINE HCL 300MG TABLET PO SCH (13:43)
[2024-07-25] VITALS (8 sets, daily range): BP systolic 107–133; BP diastolic 45–73; PULSE 62–79; RESP 13–19; TEMP 36.72516–37.94748; O2SAT 97–100
[2024-07-25 09:41] LABS: CHLORIDE 96 mEq/L (98-107); POTASSIUM 4.4 mEq/L (3.5-5.1); SODIUM 126 mEq/L (136-145)
[2024-07-25 09:42] LABS: CALCIUM 9.2 mg/dL (8.7-10.4); CARBON DIOXIDE 25 mEq/L (21-32)
[2024-07-25 09:47] LABS: CREATININE 0.8 mg/dL (0.6-1.3); GLUCOSE 98 mg/dL (70-105); UREA NITROGEN BLOOD 10 mg/dL (9-23)
[2024-07-25] MEDS ORDERED: DEME300T8 PO (10:35)
[2024-07-25] MEDS ORDERED: DIGO-34 PO (10:35)
[2024-07-25] MEDS ORDERED: METO25TA6 PO (10:35)
[2024-08-02] MEDS ORDERED: SUCR1TAB MT (09:08)
[2024-08-02] MEDS ORDERED: PROT40 MT (09:09)
== END 2024-07-25 15:10 | disposition home or self-care (01) | DRG 811 ==
LOC: ER 21:27 → EDBEDREQDT 07-12 01:04 → EDBEDREQ 07-12 01:04 → EDBEDREQTM 07-12 01:04 → 5WST 07-12 03:21 → 7WST 07-12 08:43 → 5EST 07-19 14:07
PROVIDERS: ADMIT Internal Medicine; ATTEND Internal Medicine
PROC: 30233N1 Transfusion of Nonautologous Red Blood Cells into Peripheral Vein, Percutaneous Approach (ICD-10-PCS; principal; 2024-07-22)
DX: D50.9 Iron deficiency anemia, unspecified (principal); J18.9 Pneumonia, unspecified organism; E22.2 Syndrome of inappropriate secretion of antidiuretic hormone; C64.2 Malignant neoplasm of left kidney, except renal pelvis; J43.2 Centrilobular emphysema; D72.10 Eosinophilia, unspecified; I10 Essential (primary) hypertension; H91.91 Unspecified hearing loss, right ear; R07.81 Pleurodynia; D49.1 Neoplasm of unspecified behavior of respiratory system; I48.0 Paroxysmal atrial fibrillation; Z90.5 Acquired absence of kidney; Z85.528 Personal history of other malignant neoplasm of kidney; Z87.891 Personal history of nicotine dependence
CPT/HCPCS: 36415; 71045; 71275; 80048; 80061; 81003; 82533; 82728; 83540; 83550; 83605; 83735; 83880; 83930; 83935; 84100; 84145; 84300; 84443; 84484; 85014; 85018; 85025; 85379; 86850; 86900; 86920; 93005; 93306; 99285; J0696; J1160; J2405; J3490; J7030; P9016; Q9967